=== PATIENT | male | born 1965 | race Caucasian/White ===

== ENCOUNTER 2017-06-17 05:50 | Day surgery (SDC) | payer OTHER, BC ==
[2017-06-17] MEDS: IV RINGERS,LACTATED 1000ML 1,000 ML IV (06:29)
[2017-06-17] MEDS ORDERED: LIDOCAINE 1% PF 2 ML VIAL. ID (07:00)
[2017-06-17] MEDS ORDERED: fentaNYL PF VIAL 100 MCG/2 ML VIAL IV (07:00)
[2017-06-17] MEDS ORDERED: ONDANSETRON PF 4 MG/2 ML VIAL. IV (07:00)
[2017-06-17] MEDS ORDERED: MIDAZOLAM HCL/PF 2 MG/2 ML VIAL. (07:29)
[2017-06-17] MEDS ORDERED: fentaNYL PF VIAL 100 MCG/2 ML VIAL (07:29)
[2017-06-17] MEDS ORDERED: ROCURONIUM 50 MG/5 ML VIAL. (07:29)
[2017-06-17] MEDS ORDERED: KETAMINE HCL 500 MG/10 ML VIAL. (07:33)
[2017-06-17] MEDS ORDERED: LIDOCAINE 1% PF 5 ML VIAL. (07:39)
[2017-06-17] MEDS ORDERED: ONDANSETRON PF 4 MG/2 ML VIAL. (07:39)
[2017-06-17] MEDS ORDERED: DEXAMETHASONE SOD PHOS 20 MG/5 ML VIAL. (07:39)
[2017-06-17] MEDS ORDERED: PHENYLEPHRINE in 0.9% NACL PF 1 MG/10 ML SYRINGE. IV (07:39)
[2017-06-17] MEDS ORDERED: PROPOFOL 20 ML IV (07:39)
[2017-06-17] MEDS ORDERED: NEOSTIGMINE METHYLSULFATE 5 MG/5 ML SYRINGE. (07:43)
[2017-06-17] MEDS ORDERED: GLYCOPYRROLATE 1 MG/5 ML VIAL. (07:44)
[2017-06-17] MEDS: LIDOCAINE 1% PF 30 ML VIAL. (07:55)
[2017-06-17] MEDS: EPINEPHrine VIAL 30 MG/30 ML VIAL (07:55)
[2017-06-17] MEDS: BUPIVACAINE 0.5% 50 ML VIAL. (07:55)
[2017-06-17] MEDS: PROCHLORPERAZINE 10 MG/2 ML VIAL. IV (09:47)
[2017-06-17] MEDS: fentaNYL PF VIAL 100 MCG/2 ML VIAL IV ×3 (09:47→10:12)
[2017-06-17] MEDS: MORPHINE SULFATE 4 MG/ML DISP.SYRIN. IV ×3 (10:02→11:54)
[2017-06-17] MEDS: oxyCODONE/APAP 5/325 1 TAB TABLET PO (10:52)
[2017-06-17] MEDS ORDERED: ceFAZolin 2GM PREMIX 2 GM/50 ML BAG IV (12:00)
== END 2017-06-17 12:03 | disposition home or self-care (01) ==
LOC: SURG 05:50
DX: S83.512A Sprain of anterior cruciate ligament of left knee, initial encounter (principal); S83.282A Other tear of lateral meniscus, current injury, left knee, initial encounter; X58.XXXA Exposure to other specified factors, initial encounter; Y93.67 Activity, basketball; Y92.89 Other specified places as the place of occurrence of the external cause; Y99.8 Other external cause status
CPT/HCPCS: 29882; 97116-GP; J0171; J0690; J0780; J1100; J2250; J2270; J2370; J2405; J2704; J2710; J3010; J3490